=== PATIENT | male | born 1950 | race Caucasian/White ===

== ENCOUNTER → 2017-02-01 | Outpatient (CLI) | payer MEDICARE, OTHER | LOC: KOH-I 11:17 | DX: R05 Cough (principal); R91.8 Other nonspecific abnormal finding of lung field | CPT/HCPCS: 71020 ==

== ENCOUNTER → 2017-03-12 | Outpatient (CLI) | payer MEDICARE, OTHER | LOC: KOH-I 15:13 | DX: R06.02 Shortness of breath (principal); J98.4 Other disorders of lung | CPT/HCPCS: 71020 ==

== ENCOUNTER → 2017-03-18 | Outpatient (CLI) | payer MEDICARE, OTHER | LOC: US 03-15 14:30 | DX: N63 Unspecified lump in breast (principal) | CPT/HCPCS: 76641-LT ==

== ENCOUNTER → 2017-03-27 | Outpatient (CLI) | payer MEDICARE, OTHER | LOC: KOH-I 03-22 09:30 → CT 08:28 | DX: J17 Pneumonia in diseases classified elsewhere (principal); R91.8 Other nonspecific abnormal finding of lung field | CPT/HCPCS: 71260; J7050; Q9962 ==

== ENCOUNTER → 2022-01-30 | Outpatient (CLI) | payer MEDICARE, OTHER | LOC: EXRD 10:13 | DX: I50.30 Unspecified diastolic (congestive) heart failure (principal); R06.02 Shortness of breath | CPT/HCPCS: 71046 ==